=== PATIENT | female | born 1995 | race Caucasian/White ===

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

== ENCOUNTER → 2017-01-12 | Outpatient (CLI) | payer BC | END | disposition home or self-care (01) | LOC: NUC 13:00 | DX: R10.11 Right upper quadrant pain (principal) | CPT/HCPCS: 78227; A9510; J2270; J2805 ==

== ENCOUNTER 2017-01-20 10:01 | Day surgery (SDC) | payer BC ==
[~2017-01-20] VITALS: Ht 175.3 cm; Wt 66.0 kg
[2017-01-20 10:21] VITALS: BP 118/58
[2017-01-20] MEDS ORDERED: NORCO 5/3251 TABLET PO (13:41)
[2017-01-20 15:28] VITALS: BP 111/65
[2017-01-20 16:35] VITALS: BP 116/70
[2017-01-20 17:30] VITALS: BP 101/55
== END 2017-01-20 17:40 | disposition home or self-care (01) ==
LOC: SDC 10:01
DX: K81.1 Chronic cholecystitis (principal); Z80.3 Family history of malignant neoplasm of breast; Z82.49 Family history of ischemic heart disease and other diseases of the circulatory system; Z82.5 Family history of asthma and other chronic lower respiratory diseases; Z83.3 Family history of diabetes mellitus; Z80.8 Family history of malignant neoplasm of other organs or systems
CPT/HCPCS: 74300; 88304; C1769; J0131; J1100; J1170; J1885; J2250; J2405; J2765; J3010; S0020